=== PATIENT | male | born 1955 | race African-American/Black ===

== ENCOUNTER 2019-03-24 14:32 | Emergency (ER) | payer MEDICARE, OTHER ==
[~2019-03-24] VITALS: Ht 185.4 cm; Wt 112.0 kg
[2019-03-24] MEDS ORDERED: CLINDAMYCIN 600 MG in DEXTROSE 5% WATER 50 ML IV ONE (16:15)
[2019-03-24] MEDS ORDERED: ACETAMINOPHEN 325MG TABLET PO STA (16:15)
[2019-03-24] MEDS ORDERED: LIDOCAINE 1%/EPI 1:100,000 10 ML VIAL IJ ONE (16:15)
[2019-03-24] MEDS ORDERED: CLONIDINE 0.2MG TABLET PO ONE (16:30)
[2019-03-24] MEDS ORDERED: LIDOCAINE HCL/EPINEPHRINE 1%-EPI 1:100,000 20 ML VIAL INFIL SCH (16:30)
[2019-03-24] MEDS ORDERED: CLINDAMYCIN 600MG PREMIX 50 ML IV NR (16:45)
[2019-03-24 16:52] LABS: EOSINOPHILS % 3.8 % (0.0-5.0); HEMATOCRIT. 41.9 % (42.0-52.0); HEMOGLOBIN. 13.7 g/dL (14.0-18.0); LYMPHOCYTES % 10.6 % (20.0-50.0); MEAN CORPUSCULAR HEMOGLOBIN 26.8 pg (28.0-32.0); MEAN CORPUSCULAR VOLUME 81.9 fL (80.0-94.0); MONOCYTES % 10.5 % (2.0-8.0); NEUTROPHILS % 74.1 % (40.0-76.0); RED BLOOD CELL COUNT 5.12 mill/uL (4.7-6.1); RED CELL DISTRIBUTION WIDTH 16.9 % (11.6-14.6)
[2019-03-24 16:54] LABS: CHLORIDE 100 mEq/L (98-107)
[2019-03-24 17:09] LABS: MEAN PLATELET VOLUME 9.1 fl (7.4-10.4); PLATELET 116 x1000/uL (130-400)
[2019-03-24] MEDS ORDERED: CLINDAMYCIN HCL 150MG CAPSULE PO STA (18:24)
[2019-03-24 19:06] VITALS: BP 160/86
== END 2019-03-24 19:08 | disposition home or self-care (01) ==
LOC: ER 14:32
DX: L03.115 Cellulitis of right lower limb (principal); L02.415 Cutaneous abscess of right lower limb; I12.0 Hypertensive chronic kidney disease with stage 5 chronic kidney disease or end stage renal disease; E11.22 Type 2 diabetes mellitus with diabetic chronic kidney disease; N18.6 End stage renal disease; Z89.9 Acquired absence of limb, unspecified; Z99.2 Dependence on renal dialysis
CPT/HCPCS: 10060; 36415; 71045; 80053; 85025; 87040; 93005; 93971; 99283; J3490; J7060

== ENCOUNTER 2019-03-26 13:57 | Emergency (ER) | payer MEDICARE, OTHER ==
[~2019-03-26] VITALS: Ht 185.4 cm; Wt 117.0 kg
[2019-03-26] MEDS ORDERED: ATOR20TA65 MT (14:11)
[2019-03-26] MEDS ORDERED: MULT-1116 MT (14:11)
[2019-03-26] MEDS ORDERED: CLOP75TA33 PO (14:11)
[2019-03-26] MEDS ORDERED: LIDOCAINE HCL/PF 1% 10 MG/ML 5ML VIAL IJ ONE (15:30)
[2019-03-26 16:16] VITALS: BP 158/62
== END 2019-03-26 16:14 | disposition home or self-care (01) ==
LOC: ER 13:57
DX: Z48.00 Encounter for change or removal of nonsurgical wound dressing (principal); L03.115 Cellulitis of right lower limb; E11.8 Type 2 diabetes mellitus with unspecified complications; E11.22 Type 2 diabetes mellitus with diabetic chronic kidney disease; N18.6 End stage renal disease; Z99.2 Dependence on renal dialysis; Z89.612 Acquired absence of left leg above knee
CPT/HCPCS: 99283; J3490

== ENCOUNTER 2019-04-01 12:03 | Emergency (ER) | payer MEDICARE, OTHER ==
[~2019-04-01] VITALS: Ht 185.4 cm; Wt 111.0 kg
[~2019-04-01 12:03] MED LIST: ATOR20TA65 MT; CLOP75TA33 PO; MULT-1116 MT
[2019-04-01 15:23] VITALS: BP 158/76
== END 2019-04-01 15:22 | disposition home or self-care (01) ==
LOC: ER 12:03
DX: S80.921D Unspecified superficial injury of right lower leg, subsequent encounter (principal); N28.9 Disorder of kidney and ureter, unspecified; E11.9 Type 2 diabetes mellitus without complications; Z98.890 Other specified postprocedural states; Z89.619 Acquired absence of unspecified leg above knee; Z79.899 Other long term (current) drug therapy; X58.XXXD Exposure to other specified factors, subsequent encounter
CPT/HCPCS: 99281; A4565

== ENCOUNTER 2019-04-04 09:23 | Emergency (ER) | payer MEDICARE, OTHER ==
[~2019-04-04] VITALS: Ht 185.4 cm; Wt 112.0 kg
[2019-04-04 09:38] VITALS: BP 135/85
== END 2019-04-04 11:23 | disposition home or self-care (01) ==
LOC: ER 09:23
DX: Z48.00 Encounter for change or removal of nonsurgical wound dressing (principal); E11.9 Type 2 diabetes mellitus without complications; Z89.512 Acquired absence of left leg below knee
CPT/HCPCS: 99282

== ENCOUNTER 2019-04-21 21:55 | Emergency (ER) | payer MEDICARE, MEDICAID, OTHER ==
[~2019-04-21] VITALS: Ht 185.4 cm; Wt 120.0 kg
[2019-04-22] MEDS ORDERED: HYDROCODONE/ACETAMINOPHEN 5/325MG TABLET PO ONE
[2019-04-22] MEDS ORDERED: KETOROLAC 30MG/ML VIAL IM ONE
[2019-04-22 02:10] VITALS: BP 144/80
== END 2019-04-22 03:13 | disposition home or self-care (01) ==
LOC: ER 21:55
DX: M25.551 Pain in right hip (principal); E11.9 Type 2 diabetes mellitus without complications; Z98.890 Other specified postprocedural states; Z79.899 Other long term (current) drug therapy
CPT/HCPCS: 73502; 96372; 99283; J1885

== ENCOUNTER 2019-04-25 13:14 | Emergency (ER) | payer MEDICARE, OTHER ==
[~2019-04-25] VITALS: Ht 185.4 cm; Wt 111.0 kg
[2019-04-25 13:50] VITALS: BP 171/73
[2019-04-25] MEDS ORDERED: LIDOCAINE HCL/PF 1% 10 MG/ML 5ML VIAL IJ ONE (16:00)
[2019-04-25] MEDS ORDERED: BACITRACIN ZINC OINT UDPKT TOP ONE (16:00)
[2019-04-25] MEDS ORDERED: ACETAMINOPHEN 325MG TABLET PO ONE (16:00)
== END 2019-04-25 17:08 | disposition home or self-care (01) ==
LOC: ER 13:26
DX: L02.415 Cutaneous abscess of right lower limb (principal); E11.22 Type 2 diabetes mellitus with diabetic chronic kidney disease; I12.0 Hypertensive chronic kidney disease with stage 5 chronic kidney disease or end stage renal disease; N18.6 End stage renal disease; Z99.2 Dependence on renal dialysis; Z89.512 Acquired absence of left leg below knee
CPT/HCPCS: 10060; 99283; J3490

== ENCOUNTER 2019-04-29 11:03 | Emergency (ER) | payer MEDICARE, OTHER ==
[~2019-04-29] VITALS: Ht 185.4 cm; Wt 87.0 kg
[2019-04-29 11:59] VITALS: BP 135/89
[2019-04-29] MEDS ORDERED: BACITRACIN ZINC OINT UDPKT TOP ONE (13:15)
== END 2019-04-29 13:31 | disposition home or self-care (01) ==
LOC: ER 11:16
DX: M79.604 Pain in right leg (principal); E11.9 Type 2 diabetes mellitus without complications; Z98.890 Other specified postprocedural states; Z79.899 Other long term (current) drug therapy
CPT/HCPCS: 99282

== ENCOUNTER 2020-01-05 14:31 | Emergency (ER) | payer MEDICARE, MEDICAID, OTHER ==
[~2020-01-05] VITALS: Ht 188 cm; Wt 110.0 kg
[2020-01-05 16:57] LABS: EOSINOPHILS % 13.9 % (0.0-5.0); HEMATOCRIT. 32.8 % (42.0-52.0); LYMPHOCYTES % 14.9 % (20.0-50.0); MEAN CORPUSCULAR HEMOGLOBIN 28.1 pg (28.0-32.0); MEAN CORPUSCULAR VOLUME 83.8 fL (80.0-94.0); MEAN PLATELET VOLUME 9.2 fl (7.4-10.4); MONOCYTES % 11.2 % (2.0-8.0); PLATELET 99 x1000/uL (130-400); RED BLOOD CELL COUNT 3.91 mill/uL (4.7-6.1)
[2020-01-05 17:05] LABS: INR 1.1; PROTHROMBIN TIME 11.9 sec (9.6-11.0)
[2020-01-05 17:06] LABS: CHLORIDE 92 mEq/L (98-107)
[2020-01-05 17:55] VITALS: BP 183/88
== END 2020-01-05 17:57 | disposition home or self-care (01) ==
LOC: ER 14:37
DX: T82.41XA Breakdown (mechanical) of vascular dialysis catheter, initial encounter (principal); Y84.1 Kidney dialysis as the cause of abnormal reaction of the patient, or of later complication, without mention of misadventure at the time of the procedure; Y92.9 Unspecified place or not applicable; I12.0 Hypertensive chronic kidney disease with stage 5 chronic kidney disease or end stage renal disease; E11.22 Type 2 diabetes mellitus with diabetic chronic kidney disease; N18.6 End stage renal disease; Z99.2 Dependence on renal dialysis; Z89.9 Acquired absence of limb, unspecified
CPT/HCPCS: 36415; 80053; 85025; 99283

== ENCOUNTER 2020-04-07 14:51 | Emergency (ER) | payer MEDICARE, MEDICAID, OTHER ==
[~2020-04-07] VITALS: Ht 188 cm; Wt 113.0 kg
[2020-04-07 16:40] VITALS: BP 168/62
== END 2020-04-07 17:45 | disposition home or self-care (01) ==
LOC: ER 15:52
DX: R60.0 Localized edema (principal); I12.0 Hypertensive chronic kidney disease with stage 5 chronic kidney disease or end stage renal disease; E11.22 Type 2 diabetes mellitus with diabetic chronic kidney disease; N18.6 End stage renal disease; Z99.2 Dependence on renal dialysis; Z79.899 Other long term (current) drug therapy
CPT/HCPCS: 93971; 99284

== ENCOUNTER 2020-04-11 10:21 | Emergency (ER) | payer MEDICARE, OTHER ==
[~2020-04-11] VITALS: Ht 182.9 cm; Wt 113.0 kg
[2020-04-11 10:27] VITALS: BP 184/77
[2020-04-11 12:05] LABS: BASOPHILS % 1.1 % (0.0-2.0); EOSINOPHILS % 3.7 % (0.0-5.0); HEMATOCRIT. 26.9 % (42.0-52.0); LYMPHOCYTES % 11.3 % (20.0-50.0); MEAN CORPUSCULAR HEMOGLOBIN 28.8 pg (28.0-32.0); MEAN CORPUSCULAR VOLUME 85.9 fL (80.0-94.0); MEAN PLATELET VOLUME 9.6 fl (7.4-10.4); MONOCYTES % 14.6 % (2.0-8.0); NEUTROPHILS % 69.3 % (40.0-76.0); PLATELET 70 x1000/uL (130-400); RED BLOOD CELL COUNT 3.13 mill/uL (4.7-6.1); RED CELL DISTRIBUTION WIDTH 14.6 % (11.6-14.6)
[2020-04-11 12:11] LABS: CHLORIDE 100 mEq/L (98-107)
== END 2020-04-11 16:17 | disposition home or self-care (01) ==
LOC: ER 10:40
DX: R60.9 Edema, unspecified (principal); I12.0 Hypertensive chronic kidney disease with stage 5 chronic kidney disease or end stage renal disease; E11.22 Type 2 diabetes mellitus with diabetic chronic kidney disease; N18.6 End stage renal disease; Z99.2 Dependence on renal dialysis; Z89.612 Acquired absence of left leg above knee
CPT/HCPCS: 36415; 71045; 80053; 85025; 93970; 99285

== ENCOUNTER 2020-05-11 08:23 | Inpatient (IN) | payer MEDICARE, OTHER ==
[~2020-05-11] VITALS: Ht 185.4 cm; Wt 110.7 kg
[~2020-05-11 08:23] MED LIST changes: +ALBU90AE INH; +ASCO-339 MT; +ASPI-1497 MT; +CALC667C PO; +DEXA2TAB PO; +FAMO-135 PO; +LOSA100T32 PO; +PIOG15TA66 PO; +ZINC220T4 MT
[2020-05-11 09:35] LABS: HEMATOCRIT. 25.3 % (42.0-52.0); HEMOGLOBIN. 8.4 g/dL (14.0-18.0); MEAN CORPUSCULAR HEMOGLOBIN 28.5 pg (28.0-32.0); MEAN CORPUSCULAR VOLUME 86.1 fL (80.0-94.0); MEAN PLATELET VOLUME 10.8 fl (7.4-10.4); PLATELET 74 x1000/uL (130-400); RED BLOOD CELL COUNT 2.94 mill/uL (4.7-6.1); RED CELL DISTRIBUTION WIDTH 17.4 % (11.6-14.6)
[2020-05-11 09:37] LABS: CHLORIDE 95 mEq/L (98-107)
[2020-05-11 09:41] LABS: ETHANOL BLOOD < 10 mg/dL
[2020-05-11 10:38] LABS: PLATELET ESTIMATE DECREASED
[2020-05-11] MEDS ORDERED: IPRATROPIUM BROMIDE (0.02%) 0.5MG/2.5ML NEB HHN STA (10:52)
[2020-05-11] MEDS ORDERED: ALBUTEROL (0.083%) 2.5MG/3ML NEB HHN STA (10:52)
[2020-05-11] MEDS ORDERED: LEVOFLOXACIN 500MG PREMIX 100 ML IV ONE (11:00)
[2020-05-11] MEDS ORDERED: IPRATROPIUM/ALBUTEROL 0.5-3(2.5)MG/3ML NEB HHN PRN (13:45)
[2020-05-11] MEDS ORDERED: CLONIDINE 0.1MG TABLET PO PRN (13:45)
[2020-05-11] MEDS ORDERED: ACETAMINOPHEN 325MG TABLET PO PRN (13:45)
[2020-05-11] MEDS ORDERED: DIPHENHYDRAMINE 50MG/ML VIAL IV PRN (13:45)
[2020-05-11] MEDS ORDERED: ONDANSETRON HCL 4MG/2ML INJ IV PRN (13:45)
[2020-05-11 15:40] VITALS: BP 137/66
[2020-05-11] MEDS ORDERED: LOSA25TA26 MT (16:56)
[2020-05-11] MEDS ORDERED: ATOR10TA69 MT (16:56)
[2020-05-11] MEDS ORDERED: CALC-1068 MT (16:56)
[2020-05-11] MEDS ORDERED: CLOP75TA33 MT (16:56)
[2020-05-11] MEDS ORDERED: ENOXAPARIN 120MG/0.8ML SYR SUBCUT SCH (19:00)
[2020-05-11 20:00] VITALS: BP 147/69
[2020-05-11] MEDS: METOPROLOL TARTRATE 25MG TABLET PO SCH (21:10)
[2020-05-11] MEDS ORDERED: PROMETHAZINE/DEXTROMETHORPHAN 6.25-15MG/5ML BOTTLE 120ML PO PRN (23:00)
[2020-05-12] VITALS: BP 109/59
[2020-05-12 04:00] VITALS: BP 136/65
[2020-05-12 05:58] LABS: INR 1.2
[2020-05-12 06:02] LABS: CHLORIDE 96 mEq/L (98-107)
[2020-05-12 06:04] LABS: HEMATOCRIT. 22.6 % (42.0-52.0); HEMOGLOBIN. 7.6 g/dL (14.0-18.0); MEAN CORPUSCULAR HEMOGLOBIN 28.7 pg (28.0-32.0); MEAN CORPUSCULAR VOLUME 85.5 fL (80.0-94.0); MEAN PLATELET VOLUME 10.2 fl (7.4-10.4); PLATELET 77 x1000/uL (130-400); RED BLOOD CELL COUNT 2.64 mill/uL (4.7-6.1); RED CELL DISTRIBUTION WIDTH 17.2 % (11.6-14.6)
[2020-05-12 06:25] LABS: LDL CHOLESTEROL 43 mg/dL (5-100)
[2020-05-12 06:26] LABS: HDL CHOLESTEROL 34 mg/dL (40-59)
[2020-05-12] MEDS ORDERED: DEXTROSE 50% WATER 50ML SYRINGE IV PRN (07:00)
[2020-05-12] MEDS: BLOOD SUGAR DIAGNOSTIC STRIP TEST SCH ×3 (07:20→17:20)
[2020-05-12] MEDS: INSULIN LISPRO 100 UNITS/ML SUBCUT SCH ×3 (07:50→17:50)
[2020-05-12 08:00] VITALS: BP 165/79
[2020-05-12] MEDS: METOPROLOL TARTRATE 25MG TABLET PO SCH ×2 (08:14→08:15)
[2020-05-12 12:00] VITALS: BP 168/80
[2020-05-12] MEDS ORDERED: GUAIFENESIN-DM 200MG-20MG/10ML UDC PO PRN (12:15)
[2020-05-12] MEDS ORDERED: LEVO250T58 MT (13:06)
[2020-05-12] MEDS ORDERED: LEVO50TA MT (13:06)
[2020-05-12] MEDS ORDERED: LOSARTAN POTASSIUM 50 MG TABLET PO NR (13:15)
[2020-05-12 14:38] VITALS: BP_SYST 158; BP_SYST 168; BP_DIAS 80; BP_DIAS 86
[2020-05-12 16:00] VITALS: BP 158/86
[2020-05-12] MEDS ORDERED: EPOETIN ALFA-EPBX 10,000 UNIT/ML VIAL SUBCUT SCH (21:00)
[2020-05-13] MEDS ORDERED: LEVOTHYROXINE SODIUM 50MCG TABLET PO SCH (07:20)
[2020-05-13 09:11] LABS: PLATELET ESTIMATE DECREASED
[2020-05-13] MEDS ORDERED: LEVOFLOXACIN 500MG PREMIX 100 ML IV SCH ×2 (11:00)
== END 2020-05-12 19:05 | disposition home or self-care (01) | DRG 193 ==
LOC: ER 08:23 → 6WST 13:08 → EDBEDREQ 13:11 → ENRESERV 14:38
PROVIDERS: ADMIT Internal Medicine; ATTEND Internal Medicine
PROC: 5A1D70Z Performance of Urinary Filtration, Intermittent, Less than 6 Hours Per Day (ICD-10-PCS; principal; 2020-05-12)
DX: J18.9 Pneumonia, unspecified organism (principal); J96.00 Acute respiratory failure, unspecified whether with hypoxia or hypercapnia; N18.6 End stage renal disease; I48.92 Unspecified atrial flutter; I13.11 Hypertensive heart and chronic kidney disease without heart failure, with stage 5 chronic kidney disease, or end stage renal disease; J44.0 Chronic obstructive pulmonary disease with (acute) lower respiratory infection; J98.11 Atelectasis; J20.9 Acute bronchitis, unspecified; D63.1 Anemia in chronic kidney disease; E11.51 Type 2 diabetes mellitus with diabetic peripheral angiopathy without gangrene; D72.819 Decreased white blood cell count, unspecified; J98.4 Other disorders of lung; E11.22 Type 2 diabetes mellitus with diabetic chronic kidney disease; E78.5 Hyperlipidemia, unspecified; Z86.16 Personal history of COVID-19; Z89.512 Acquired absence of left leg below knee; Z99.2 Dependence on renal dialysis; Z98.84 Bariatric surgery status; Z87.01 Personal history of pneumonia (recurrent); Z89.421 Acquired absence of other right toe(s); Z79.899 Other long term (current) drug therapy
CPT/HCPCS: 36415; 71045; 80053; 80061; 80320; 82962; 83036; 83605; 83880; 84145; 84443; 84484; 85025; 93005; 93306; 93970; 94640; 99285; J0885; J1650; J1956; G0480

== ENCOUNTER 2020-05-26 13:16 | Emergency (ER) | payer MEDICARE, OTHER ==
[~2020-05-26] VITALS: Ht 185.4 cm; Wt 111.0 kg
[~2020-05-26 13:16] MED LIST changes: -ASPI-1497 MT; +ATOR10TA69 MT; +CALC-1068 MT; -CLOP75TA33 PO; +LEVO250T58 MT; +LEVO50TA MT
[2020-05-26 13:32] VITALS: BP 131/65
[2020-05-26] MEDS ORDERED: CETI10TA6 PO (14:10)
[2020-05-26] MEDS ORDERED: DOXY100C42 PO (14:10)
[2020-05-26] MEDS ORDERED: FLUT9.9S BOTHNSTRLS (14:10)
== END 2020-05-26 14:36 | disposition home or self-care (01) ==
LOC: ER 14:08
DX: L01.00 Impetigo, unspecified (principal); J32.9 Chronic sinusitis, unspecified; I12.0 Hypertensive chronic kidney disease with stage 5 chronic kidney disease or end stage renal disease; E11.22 Type 2 diabetes mellitus with diabetic chronic kidney disease; N18.6 End stage renal disease; Z99.2 Dependence on renal dialysis; Z89.421 Acquired absence of other right toe(s); Z89.512 Acquired absence of left leg below knee; Z98.890 Other specified postprocedural states
CPT/HCPCS: 99283

== ENCOUNTER 2020-06-21 16:44 | Emergency (ER) | payer BC, OTHER ==
[~2020-06-21] VITALS: Ht 175.3 cm; Wt 80.0 kg
[~2020-06-21 16:44] MED LIST changes: +CETI10TA6 PO; +DOXY100C42 PO; +FLUT9.9S BOTHNSTRLS
[2020-06-21] MEDS ORDERED: SODIUM CHLORIDE 0.9% 1,000 ML IV ONE (18:00)
[2020-06-21 18:03] LABS: CHLORIDE 99 mEq/L (98-107)
[2020-06-21 18:06] LABS: BASOPHILS % 0.9 % (0.0-2.0); EOSINOPHILS % 1.9 % (0.0-5.0); HEMATOCRIT. 30.6 % (42.0-52.0); LYMPHOCYTES % 11.3 % (20.0-50.0); MEAN CORPUSCULAR HEMOGLOBIN 28.9 pg (28.0-32.0); MEAN CORPUSCULAR VOLUME 88.6 fL (80.0-94.0); MEAN PLATELET VOLUME 10.8 fl (7.4-10.4); MONOCYTES % 11.8 % (2.0-8.0); NEUTROPHILS % 74.1 % (40.0-76.0); PLATELET 107 x1000/uL (130-400); RED BLOOD CELL COUNT 3.46 mill/uL (4.7-6.1); RED CELL DISTRIBUTION WIDTH 17.1 % (11.6-14.6)
[2020-06-21] MEDS ORDERED: IOHEXOL-300 100 ML BOTTLE ONE (20:18)
[2020-06-22] VITALS: BP 146/75
== END 2020-06-22 00:40 | disposition short-term general hospital (02) ==
LOC: ER 16:44
DX: R19.7 Diarrhea, unspecified (principal); R42 Dizziness and giddiness; E86.1 Hypovolemia; E11.22 Type 2 diabetes mellitus with diabetic chronic kidney disease; I12.9 Hypertensive chronic kidney disease with stage 1 through stage 4 chronic kidney disease, or unspecified chronic kidney disease; N18.9 Chronic kidney disease, unspecified; Z20.822 Contact with and (suspected) exposure to COVID-19; Z79.899 Other long term (current) drug therapy; Z89.9 Acquired absence of limb, unspecified
CPT/HCPCS: 36415; 70450; 71045; 71260; 80053; 82010; 82962; 83880; 84484; 85025; 87426; 93005; 96360; 99285; J7030; Q9967

== ENCOUNTER 2020-11-08 17:15 | Inpatient (IN) | payer MEDICARE, MEDICAID ==
[~2020-11-08] VITALS: Ht 185.4 cm; Wt 111.1 kg
[2020-11-08] MEDS ORDERED: ACETAMINOPHEN WITH CODEINE 300/30MG TABLET PO ONE (18:15)
[2020-11-08] MEDS ORDERED: ONDANSETRON HCL 4MG/2ML INJ IV STA (19:01)
[2020-11-08] MEDS ORDERED: MORPHINE SULFATE 4 MG/ML CPJ (NOT FOR IM USE) IV STA (19:01)
[2020-11-08] MEDS ORDERED: SODIUM CHLORIDE 0.9% 1,000 ML IV ONE (19:15)
[2020-11-08 19:56] LABS: BASOPHILS % 0.9 % (0.0-2.0); EOSINOPHILS % 3.1 % (0.0-5.0); HEMATOCRIT. 33.2 % (42.0-52.0); HEMOGLOBIN. 10.8 g/dL (14.0-18.0); LYMPHOCYTES % 13.2 % (20.0-50.0); MEAN CORPUSCULAR HEMOGLOBIN 26.8 pg (28.0-32.0); MEAN CORPUSCULAR VOLUME 82.1 fL (80.0-94.0); MEAN PLATELET VOLUME 9.7 fl (7.4-10.4); MONOCYTES % 10.4 % (2.0-8.0); NEUTROPHILS % 72.4 % (40.0-76.0); PLATELET 65 x1000/uL (130-400); RED BLOOD CELL COUNT 4.05 mill/uL (4.7-6.1); RED CELL DISTRIBUTION WIDTH 16.9 % (11.6-14.6)
[2020-11-08 20:04] LABS: CHLORIDE 100 mEq/L (98-107)
[2020-11-08 20:07] LABS: INR 1.3; PROTHROMBIN TIME 13.9 sec (9.6-11.0)
[2020-11-09] MEDS ORDERED: DIPHENHYDRAMINE 50MG/ML VIAL IV PRN (02:30)
[2020-11-09] MEDS ORDERED: ONDANSETRON HCL 4MG/2ML INJ IV PRN (02:30)
[2020-11-09] MEDS ORDERED: ACETAMINOPHEN 325MG TABLET PO PRN ×2 (02:30)
[2020-11-09] MEDS ORDERED: NALOXONE HCL 0.4MG/ML VIAL IV PRN (02:45)
[2020-11-09 03:27] VITALS: BP 156/83
[2020-11-09] MEDS: DEXT 5%/0.45% NACL 1000ML 1,000 ML IV SCH (03:55)
[2020-11-09 04:00] VITALS: BP 156/83
[2020-11-09] MEDS: MORPHINE SULFATE 4 MG/ML CPJ (NOT FOR IM USE) IV PRN ×3 (04:08→23:16)
[2020-11-09] MEDS: OMEPRAZOLE 20MG CAPSULE EXTENDED RELEASE PO SCH ×2 (06:24→21:04)
[2020-11-09 08:00] VITALS: BP 148/79
[2020-11-09 12:00] VITALS: BP 161/98
[2020-11-09 16:00] VITALS: BP 173/95
[2020-11-09 20:00] VITALS: BP 180/85
[2020-11-09] MEDS: CLONIDINE 0.1MG TABLET PO PRN (21:04)
[2020-11-10] VITALS: BP 134/75
[2020-11-10 04:00] VITALS: BP 150/84
[2020-11-10] MEDS: OMEPRAZOLE 20MG CAPSULE EXTENDED RELEASE PO SCH ×2 (05:25→21:37)
[2020-11-10 08:00] VITALS: BP 155/83
[2020-11-10] MEDS ORDERED: VANCOMYCIN HCL 1 GM/VIAL ONE (11:08)
[2020-11-10] MEDS ORDERED: BACITRACIN 15GM TUBE TOP ONE (11:08)
[2020-11-10 11:24] LABS: BASOPHILS % 1.3 % (0.0-2.0); EOSINOPHILS % 13.1 % (0.0-5.0); HEMATOCRIT. 36.7 % (42.0-52.0); LYMPHOCYTES % 18.8 % (20.0-50.0); MEAN CORPUSCULAR HEMOGLOBIN 26.8 pg (28.0-32.0); MEAN CORPUSCULAR VOLUME 82.2 fL (80.0-94.0); MEAN PLATELET VOLUME 10.3 fl (7.4-10.4); NEUTROPHILS % 56.8 % (40.0-76.0); PLATELET 68 x1000/uL (130-400); RED BLOOD CELL COUNT 4.47 mill/uL (4.7-6.1)
[2020-11-10 12:00] VITALS: BP 156/78
[2020-11-10] MEDS ORDERED: FENTANYL CITRATE/PF 50MCG/ML 2ML VIAL ONE (13:50)
[2020-11-10] MEDS ORDERED: SUCCINYLCHOLINE CHLORIDE 200MG/10ML IV ONE (13:51)
[2020-11-10] MEDS ORDERED: PROPOFOL 200MG/20ML VIAL IV ONE (13:51)
[2020-11-10] MEDS ORDERED: GLYCOPYRROLATE 0.2 MG/ML 2ML VIAL ONE (13:51)
[2020-11-10] MEDS ORDERED: ONDANSETRON HCL 4MG/2ML INJ ONE (13:51)
[2020-11-10] MEDS ORDERED: CEFAZOLIN SODIUM 1000MG/VIAL ONE (13:51)
[2020-11-10] MEDS ORDERED: MIDAZOLAM HCL 2 MG/2 ML VIAL ONE (13:51)
[2020-11-10] MEDS ORDERED: METOCLOPRAMIDE HCL 10MG/2ML VIAL ONE (13:51)
[2020-11-10] MEDS ORDERED: LIDOCAINE HCL/EPINEPHRINE 1%-EPI 1:100,000 20 ML VIAL ONE (14:16)
[2020-11-10] MEDS ORDERED: BUPIVACAINE HCL 0.5% (5MG/ML) 50ML ONE (14:18)
[2020-11-10] MEDS ORDERED: MORPHINE SULFATE 2 MG/ML CPJ (NOT FOR IM USE) IV PRN (15:00)
[2020-11-10] MEDS ORDERED: ONDANSETRON HCL 4MG/2ML INJ IV PRN (15:00)
[2020-11-10] MEDS ORDERED: HYDROMORPHONE HCL/PF 2MG/ML CPJ IV PRN (15:00)
[2020-11-10] MEDS ORDERED: MEPERIDINE HCL/PF 25MG/ML CPJ IV PRN ×2 (15:00)
[2020-11-10] MEDS ORDERED: SODIUM CHLORIDE 0.9% 1,000 ML IV ONE (15:00)
[2020-11-10 16:30] VITALS: BP 155/81
[2020-11-10] MEDS: MORPHINE SULFATE 4 MG/ML CPJ (NOT FOR IM USE) IV PRN (18:48)
[2020-11-10 20:00] VITALS: BP 153/71
[2020-11-10] MEDS: HYDROCODONE/ACETAMINOPHEN 10/325MG TABLET PO PRN (21:36)
[2020-11-10] MEDS: CEFAZOLIN 1000MG PREMIX 50 ML IV SCH (21:36)
[2020-11-10] MEDS ORDERED: CEFAZOLIN SODIUM 1000MG/VIAL IV SCH (22:00)
[2020-11-11] VITALS: BP 155/80
[2020-11-11] MEDS: MORPHINE SULFATE 4 MG/ML CPJ (NOT FOR IM USE) IV PRN ×2 (03:26→22:00)
[2020-11-11] MEDS: DEXT 5%/0.45% NACL 1000ML 1,000 ML IV SCH ×2 (03:27→06:37)
[2020-11-11 04:00] VITALS: BP 133/66
[2020-11-11] MEDS: OMEPRAZOLE 20MG CAPSULE EXTENDED RELEASE PO SCH ×2 (06:36→21:46)
[2020-11-11] MEDS: CEFAZOLIN 1000MG PREMIX 50 ML IV SCH ×3 (06:36→21:46)
[2020-11-11 08:00] VITALS: BP 141/71
[2020-11-11 12:00] VITALS: BP 134/70
[2020-11-11 16:00] VITALS: BP 135/67
[2020-11-11 20:00] VITALS: BP 164/68
[2020-11-11] MEDS: CLONIDINE 0.1MG TABLET PO PRN (22:03)
[2020-11-12] VITALS: BP 156/76
[2020-11-12 04:00] VITALS: BP 153/72
[2020-11-12] MEDS: CEFAZOLIN 1000MG PREMIX 50 ML IV SCH (06:26)
[2020-11-12] MEDS: DEXT 5%/0.45% NACL 1000ML 1,000 ML IV SCH (06:31)
[2020-11-12] MEDS: OMEPRAZOLE 20MG CAPSULE EXTENDED RELEASE PO SCH ×3 (06:31→20:09)
[2020-11-12] MEDS: MORPHINE SULFATE 4 MG/ML CPJ (NOT FOR IM USE) IV PRN (06:40)
[2020-11-12 08:00] VITALS: BP 153/75
[2020-11-12 12:00] VITALS: BP 153/75
[2020-11-12 16:00] VITALS: BP 149/69
[2020-11-12 16:26] LABS: HEPATITIS B SURFACE ANTIGEN NEGATIVE
[2020-11-12 20:00] VITALS: BP 165/70
[2020-11-12] MEDS: CLONIDINE 0.1MG TABLET PO PRN (20:10)
[2020-11-13] VITALS: BP 149/77
[2020-11-13] MEDS: DEXT 5%/0.45% NACL 1000ML 1,000 ML IV SCH (03:33)
[2020-11-13 04:00] VITALS: BP 153/69
[2020-11-13] MEDS: OMEPRAZOLE 20MG CAPSULE EXTENDED RELEASE PO SCH ×2 (06:28→21:29)
[2020-11-13] MEDS: MORPHINE SULFATE 4 MG/ML CPJ (NOT FOR IM USE) IV PRN ×2 (06:28→12:47)
[2020-11-13 08:00] VITALS: BP 144/72
[2020-11-13] MEDS: HYDROCODONE/ACETAMINOPHEN 10/325MG TABLET PO PRN ×2 (10:44→17:46)
[2020-11-13 12:00] VITALS: BP 149/56
[2020-11-13 16:00] VITALS: BP 125/48
[2020-11-13 20:00] VITALS: BP 116/66
[2020-11-14] VITALS: BP 115/57
[2020-11-14 04:00] VITALS: BP 131/66
[2020-11-14] MEDS: OMEPRAZOLE 20MG CAPSULE EXTENDED RELEASE PO SCH ×2 (06:28→21:22)
[2020-11-14] MEDS: DEXT 5%/0.45% NACL 1000ML 1,000 ML IV SCH (06:28)
[2020-11-14 08:00] VITALS: BP 155/69
[2020-11-14] MEDS ORDERED: MORPHINE SULFATE 4 MG/ML CPJ (NOT FOR IM USE) IV PRN (09:00)
[2020-11-14] MEDS ORDERED: HYDROCODONE/ACETAMINOPHEN 10/325MG TABLET PO PRN (09:00)
[2020-11-14 12:00] VITALS: BP 130/70
[2020-11-14 16:00] VITALS: BP 114/57
[2020-11-14 20:00] VITALS: BP 143/71
[2020-11-15] VITALS: BP 143/64
[2020-11-15 04:00] VITALS: BP 124/50
[2020-11-15] MEDS: DEXT 5%/0.45% NACL 1000ML 1,000 ML IV SCH (04:20)
[2020-11-15] MEDS: OMEPRAZOLE 20MG CAPSULE EXTENDED RELEASE PO SCH (07:11)
[2020-11-15 08:00] VITALS: BP 121/62
[2020-11-15 12:00] VITALS: BP 121/62
[2020-11-15 13:15] VITALS: BP 121/62
== END 2020-11-15 16:11 | DRG 480 ==
LOC: ER 17:15 → MICUSO 11-09 01:55 → 6EST 11-09 02:02
PROVIDERS: ADMIT Internal Medicine; ATTEND Internal Medicine
PROC: 0QS734Z Reposition Left Upper Femur with Internal Fixation Device, Percutaneous Approach (ICD-10-PCS; principal; 2020-11-10)
PROC: 5A1D70Z Performance of Urinary Filtration, Intermittent, Less than 6 Hours Per Day (ICD-10-PCS; 2020-11-12)
PROC: 5A1D70Z Performance of Urinary Filtration, Intermittent, Less than 6 Hours Per Day (ICD-10-PCS; 2020-11-12)
DX: S72.002A Fracture of unspecified part of neck of left femur, initial encounter for closed fracture (principal); N18.6 End stage renal disease; I48.92 Unspecified atrial flutter; I12.0 Hypertensive chronic kidney disease with stage 5 chronic kidney disease or end stage renal disease; D64.9 Anemia, unspecified; D69.6 Thrombocytopenia, unspecified; E11.22 Type 2 diabetes mellitus with diabetic chronic kidney disease; W18.39XA Other fall on same level, initial encounter; Z20.822 Contact with and (suspected) exposure to COVID-19; E66.9 Obesity, unspecified; E11.51 Type 2 diabetes mellitus with diabetic peripheral angiopathy without gangrene; Z86.16 Personal history of COVID-19; Z98.84 Bariatric surgery status; Z79.2 Long term (current) use of antibiotics; Z79.899 Other long term (current) drug therapy; Z89.612 Acquired absence of left leg above knee; Z87.01 Personal history of pneumonia (recurrent); Z89.512 Acquired absence of left leg below knee; Z68.32 Body mass index [BMI] 32.0-32.9, adult; Z99.2 Dependence on renal dialysis; Y93.89 Activity, other specified; Y92.89 Other specified places as the place of occurrence of the external cause; Y99.8 Other external cause status
CPT/HCPCS: 36415; 71045; 73502; 76000; 80048; 80053; 85025; 86705; 86709; 86803; 87340; 87426; 93005; 97110; 97162; 97530; 99285; J0330; J0690; J1200; J2175; J2250; J2270; J2405; J2704; J2765; J3010; J3370; J3490; J7030

== ENCOUNTER 2021-02-18 10:35 | Emergency (ER) | payer MEDICAID, MEDICARE ==
[~2021-02-18] VITALS: Ht 177.8 cm; Wt 113.0 kg
[~2021-02-18 10:35] MED LIST changes: +DOXY-326 PO; -DOXY100C42 PO
[2021-02-18 11:49] VITALS: BP 190/80
[2021-02-18] MEDS ORDERED: ACET650T37 MT (15:17)
== END 2021-02-18 15:50 | disposition home or self-care (01) ==
LOC: ER 10:35
DX: M25.521 Pain in right elbow (principal); I12.0 Hypertensive chronic kidney disease with stage 5 chronic kidney disease or end stage renal disease; E11.22 Type 2 diabetes mellitus with diabetic chronic kidney disease; N18.6 End stage renal disease; Z89.429 Acquired absence of other toe(s), unspecified side; Z99.2 Dependence on renal dialysis
CPT/HCPCS: 99282

== ENCOUNTER 2021-02-23 07:05 | Inpatient (IN) | payer MEDICARE, OTHER ==
[~2021-02-23] VITALS: Ht 185.4 cm; Wt 113.4 kg
[~2021-02-23 07:05] MED LIST changes: +ACET650T37 MT
[2021-02-23 08:06] LABS: BG BASE EXCESS 2.8 mmol/L (-2.0-2.0); BG CARBOXYHEMOGLOBIN 1.8 % (0.5-1.5); BG DEOXYHEMOGLOBIN 2.8 % (0.0-5.0); BG FRACTION INSPIRED OXYGEN 28; BG HCO3 ACT 27.4 mmol/L (22.0-26.0); BG METHEMOGLOBIN 0.3 % (0.0-1.5); BG OXYGEN SATURATION 97.1 % (92.0-98.5); BG OXYHEMOGLOBIN 95.1 % (94.0-97.0); BG PCO2 41.9 mmHg (35.0-45.0); BG PH 7.433 (7.350-7.450); BG PO2 92.9 mmHg (75.0-100.0); BG SAMPLE SITE LEFT RADIAL; BG VENT MODE NASAL CANNULA
[2021-02-23 08:27] LABS: CHLORIDE 103 mEq/L (98-107)
[2021-02-23 08:30] LABS: BASOPHILS % 1.9 % (0.0-2.0); HEMATOCRIT. 34.1 % (42.0-52.0); HEMOGLOBIN. 11.2 g/dL (14.0-18.0); MEAN CORPUSCULAR HEMOGLOBIN 27.2 pg (28.0-32.0); MEAN PLATELET VOLUME 9.5 fl (7.4-10.4); MONOCYTES % 10.1 % (2.0-8.0); PLATELET 88 x1000/uL (130-400); RED BLOOD CELL COUNT 4.11 mill/uL (4.7-6.1); RED CELL DISTRIBUTION WIDTH 16.9 % (11.6-14.6)
[2021-02-23] MEDS ORDERED: FUROSEMIDE 40MG/4ML VIAL IVP ONE (12:00)
[2021-02-23 23:00] VITALS: BP 185/94
[2021-02-24] VITALS: BP 159/78
[2021-02-24] MEDS ORDERED: ACETAMINOPHEN 325MG TABLET PO PRN (01:45)
[2021-02-24] MEDS ORDERED: DEXTROSE 50% WATER 50ML SYRINGE IV PRN (01:45)
[2021-02-24] MEDS ORDERED: APIX2.5T MT (02:04)
[2021-02-24] MEDS: BLOOD SUGAR DIAGNOSTIC STRIP TEST SCH ×4 (06:59→21:00)
[2021-02-24] MEDS: INSULIN LISPRO 100 UNITS/ML SUBCUT SCH ×4 (06:59→21:00)
[2021-02-24 07:22] LABS: HEMATOCRIT. 37.7 % (42.0-52.0); HEMOGLOBIN. 11.9 g/dL (14.0-18.0); MEAN CORPUSCULAR HEMOGLOBIN 26.5 pg (28.0-32.0); MEAN CORPUSCULAR VOLUME 83.8 fL (80.0-94.0); MEAN PLATELET VOLUME 9.8 fl (7.4-10.4); PLATELET 88 x1000/uL (130-400); RED CELL DISTRIBUTION WIDTH 17.4 % (11.6-14.6)
[2021-02-24 07:29] LABS: CHLORIDE 101 mEq/L (98-107)
[2021-02-24 08:00] VITALS: BP 145/72
[2021-02-24] MEDS ORDERED: *PATIENT'S OWN MEDICATION STORAGE XX SCH (08:30)
[2021-02-24] MEDS ORDERED: MEDICATION NOT ON FORMULARY EA (Ascorbate Calcium (Vitamin C) 1 TAB) MT SCH (09:00)
[2021-02-24] MEDS ORDERED: MEDICATION NOT ON FORMULARY EA (Multivitamin (Multi-Vitamin Daily) 1 TAB) MT SCH (09:00)
[2021-02-24] MEDS ORDERED: ZINC SULFATE MT SCH (09:00)
[2021-02-24] MEDS: ASCORBIC ACID 500 MG TABLET PO SCH (09:21)
[2021-02-24] MEDS: APIXABAN 2.5 MG TABLET PO SCH ×2 (09:21→17:49)
[2021-02-24] MEDS: ZINC SULFATE 220 MG ( 50 ) CAPSULE PO SCH (09:21)
[2021-02-24] MEDS: PIOGLITAZONE 15MG TABLET PO SCH (09:21)
[2021-02-24] MEDS: CALCIUM ACETATE 667MG CAPSULE PO SCH ×3 (09:21→17:48)
[2021-02-24] MEDS: CALCIUM CARBONATE/VITAMIN D3 500MG TABLET PO SCH ×2 (09:22→17:48)
[2021-02-24] MEDS: MULTIVITAMINS,THER W-MINERALS TABLET PO SCH (09:22)
[2021-02-24] MEDS: ATORVASTATIN CALCIUM 20MG TABLET PO SCH (09:22)
[2021-02-24] MEDS: FAMOTIDINE 20MG TABLET PO SCH (09:22)
[2021-02-24 12:00] VITALS: BP 148/61
[2021-02-24 15:56] LABS: HEPATITIS B SURFACE ANTIGEN NEGATIVE
[2021-02-24 16:00] VITALS: BP 158/1
[2021-02-24] MEDS ORDERED: IPRATROPIUM/ALBUTEROL 0.5-3(2.5)MG/3ML NEB HHN PRN (19:00)
[2021-02-24 20:37] VITALS: BP 171/89
[2021-02-24] MEDS ORDERED: LOSARTAN POTASSIUM 100 MG TABLET PO SCH (21:00)
[2021-02-24 22:34] LABS: PLATELET ESTIMATE DECREASED
[2021-02-25] VITALS (7 sets, daily range): BP systolic 93–170; BP diastolic 52–75
[2021-02-25 06:47] LABS: HEMATOCRIT 35.4 % (42.0-52.0); HEMOGLOBIN 11.4 g/dL (14.0-18.0); MEAN CORPUSCULAR HEMOGLOBIN 26.6 pg (28.0-32.0); MEAN CORPUSCULAR VOLUME 82.3 fL (80.0-94.0); PLATELET 99 x1000/uL (130-400); RED CELL DISTRIBUTION WIDTH 17.2 % (11.6-14.6)
[2021-02-25] MEDS: BLOOD SUGAR DIAGNOSTIC STRIP TEST SCH ×3 (07:10→17:10)
[2021-02-25] MEDS: INSULIN LISPRO 100 UNITS/ML SUBCUT SCH ×3 (07:40→17:40)
[2021-02-25] MEDS: PIOGLITAZONE 15MG TABLET PO SCH (08:46)
[2021-02-25] MEDS: APIXABAN 2.5 MG TABLET PO SCH ×2 (08:46→17:00)
[2021-02-25] MEDS: ZINC SULFATE 220 MG ( 50 ) CAPSULE PO SCH (08:47)
[2021-02-25] MEDS: MULTIVITAMINS,THER W-MINERALS TABLET PO SCH (08:47)
[2021-02-25] MEDS: FAMOTIDINE 20MG TABLET PO SCH (08:47)
[2021-02-25] MEDS: CALCIUM CARBONATE/VITAMIN D3 500MG TABLET PO SCH ×2 (08:47→17:00)
[2021-02-25] MEDS: ATORVASTATIN CALCIUM 20MG TABLET PO SCH (08:47)
[2021-02-25] MEDS: CALCIUM ACETATE 667MG CAPSULE PO SCH ×3 (08:47→17:00)
[2021-02-25] MEDS: ASCORBIC ACID 500 MG TABLET PO SCH (08:48)
[2021-02-25] MEDS ORDERED: CLONIDINE 0.1MG TABLET PO PRN (18:30)
== END 2021-02-25 20:52 | disposition home or self-care (01) | DRG 917 ==
LOC: ER 07:05 → 8WST 17:46 → ENRESERV 21:57
PROVIDERS: ADMIT Internal Medicine; ATTEND Internal Medicine
PROC: 5A1D70Z Performance of Urinary Filtration, Intermittent, Less than 6 Hours Per Day (ICD-10-PCS; principal; 2021-02-25)
DX: T59.811A Toxic effect of smoke, accidental (unintentional), initial encounter (principal); N18.6 End stage renal disease; E44.1 Mild protein-calorie malnutrition; I12.0 Hypertensive chronic kidney disease with stage 5 chronic kidney disease or end stage renal disease; D61.818 Other pancytopenia; E11.22 Type 2 diabetes mellitus with diabetic chronic kidney disease; E66.9 Obesity, unspecified; D64.9 Anemia, unspecified; M19.011 Primary osteoarthritis, right shoulder; Z20.822 Contact with and (suspected) exposure to COVID-19; Z86.16 Personal history of COVID-19; Z87.01 Personal history of pneumonia (recurrent); Z99.2 Dependence on renal dialysis; Y92.89 Other specified places as the place of occurrence of the external cause; Z68.33 Body mass index [BMI] 33.0-33.9, adult; Z79.899 Other long term (current) drug therapy; Z89.421 Acquired absence of other right toe(s); Z89.411 Acquired absence of right great toe; Z89.612 Acquired absence of left leg above knee; Z71.3 Dietary counseling and surveillance
CPT/HCPCS: 36415; 36600; 71045; 73030; 80053; 82375; 82805; 82962; 83036; 83880; 85025; 85027; 86705; 86709; 86803; 87340; 87426; 93005; 93306; 99285; J1940

== ENCOUNTER 2021-07-05 07:20 | Emergency (ER) | payer MEDICARE, OTHER ==
[~2021-07-05] VITALS: Ht 182.9 cm; Wt 104.0 kg
[~2021-07-05 07:20] MED LIST changes: +APIX2.5T MT
[2021-07-05] MEDS ORDERED: IOHEXOL-350 100 ML BOTTLE ONE (08:19)
[2021-07-05 09:24] LABS: CHLORIDE 99 mEq/L (98-107)
[2021-07-05 09:25] LABS: HEMATOCRIT. 33.2 % (42.0-52.0); MEAN CORPUSCULAR HEMOGLOBIN 27.3 pg (28.0-32.0); MEAN CORPUSCULAR VOLUME 82.3 fL (80.0-94.0); MEAN PLATELET VOLUME 9.8 fl (7.4-10.4); PLATELET 75 x1000/uL (130-400); RED BLOOD CELL COUNT 4.03 mill/uL (4.7-6.1); RED CELL DISTRIBUTION WIDTH 17.1 % (11.6-14.6)
[2021-07-05 09:49] LABS: NUCLEATED RED BLOOD CELLS 1 /100 WBC
[2021-07-05 09:50] LABS: PLATELET ESTIMATE DECREASED
[2021-07-05] MEDS ORDERED: LABETALOL 5MG/ML SYR 20 MG/4 ML SYRINGE IV ONE (10:00)
[2021-07-05] MEDS ORDERED: LABETALOL 5MG/ML SYR 20 MG/4 ML SYRINGE IV SCH (10:30)
[2021-07-05] MEDS ORDERED: ASPIRIN 81MG TABLET PO ONE (10:45)
[2021-07-05 11:05] VITALS: BP 189/88
[2021-07-05 11:08] LABS: ETHANOL BLOOD < 10 mg/dL
[2021-07-05 14:38] LABS: HEPATITIS B SURFACE ANTIGEN NEGATIVE
[2021-07-05] MEDS ORDERED: ATORVASTATIN CALCIUM 40MG TABLET PO SCH (21:00)
== END 2021-07-07 14:35 | disposition short-term general hospital (02) ==
LOC: ER 07:20 → CANBEDREQ 15:07 → ER 07-07 14:35
DX: R42 Dizziness and giddiness (principal); I10 Essential (primary) hypertension; E11.9 Type 2 diabetes mellitus without complications; Z20.822 Contact with and (suspected) exposure to COVID-19; Z79.899 Other long term (current) drug therapy
CPT/HCPCS: 36415; 70450; 70496; 70498; 71045; 80053; 80320; 82962; 85025; 86705; 86709; 86803; 87340; 87426; 93005; 96374; 99291; J3490; Q9967; G0480

== ENCOUNTER 2021-07-21 07:46 | Emergency (ER) | payer OTHER ==
[~2021-07-21] VITALS: Ht 185.4 cm; Wt 109.0 kg
[2021-07-21 11:37] LABS: BASOPHILS % 0.4 % (0.0-2.0); EOSINOPHILS % 5.1 % (0.0-5.0); HEMATOCRIT. 29.9 % (42.0-52.0); HEMOGLOBIN. 9.8 g/dL (14.0-18.0); LYMPHOCYTES % 17.5 % (20.0-50.0); MEAN CORPUSCULAR HEMOGLOBIN 27.1 pg (28.0-32.0); MEAN CORPUSCULAR VOLUME 82.7 fL (80.0-94.0); MEAN PLATELET VOLUME 8.9 fl (7.4-10.4); PLATELET 97 x1000/uL (130-400); RED BLOOD CELL COUNT 3.61 mill/uL (4.7-6.1); RED CELL DISTRIBUTION WIDTH 17.9 % (11.6-14.6)
[2021-07-21 11:47] LABS: CHLORIDE 101 mEq/L (98-107)
[2021-07-21] MEDS ORDERED: METR-167 MT (13:28)
[2021-07-21 15:25] VITALS: BP 152/73
== END 2021-07-21 14:18 | disposition home or self-care (01) ==
LOC: ER 07:57
DX: R19.7 Diarrhea, unspecified (principal); I12.0 Hypertensive chronic kidney disease with stage 5 chronic kidney disease or end stage renal disease; E11.22 Type 2 diabetes mellitus with diabetic chronic kidney disease; N18.6 End stage renal disease; Z99.2 Dependence on renal dialysis; Z79.899 Other long term (current) drug therapy
CPT/HCPCS: 36415; 80053; 85025; 99285

== ENCOUNTER 2021-07-23 15:36 | Emergency (ER) | payer OTHER ==
[~2021-07-23] VITALS: Ht 185.4 cm; Wt 113.0 kg
[~2021-07-23 15:36] MED LIST changes: +METR-167 MT
[2021-07-23] MEDS ORDERED: SODIUM CHLORIDE 0.9% 1,000 ML IV ONE (16:45)
[2021-07-23] MEDS ORDERED: VANCOMYCIN HCL 1 GM/VIAL PO STA (16:46)
[2021-07-23] MEDS ORDERED: METRONIDAZOLE 500 MG PREMIX 100 ML IV ONE (17:00)
[2021-07-23 17:09] LABS: BASOPHILS % 1.4 % (0.0-2.0); EOSINOPHILS % 4.6 % (0.0-5.0); HEMATOCRIT. 32.1 % (42.0-52.0); HEMOGLOBIN. 10.6 g/dL (14.0-18.0); LYMPHOCYTES % 16.4 % (20.0-50.0); MEAN CORPUSCULAR HEMOGLOBIN 26.9 pg (28.0-32.0); MEAN CORPUSCULAR VOLUME 81.7 fL (80.0-94.0); MEAN PLATELET VOLUME 9.1 fl (7.4-10.4); MONOCYTES % 9.3 % (2.0-8.0); NEUTROPHILS % 68.3 % (40.0-76.0); PLATELET 96 x1000/uL (130-400); RED BLOOD CELL COUNT 3.93 mill/uL (4.7-6.1); RED CELL DISTRIBUTION WIDTH 17.8 % (11.6-14.6)
[2021-07-23 17:19] LABS: CHLORIDE 101 mEq/L (98-107)
[2021-07-23] MEDS ORDERED: VANCOMYCIN 1000MG/20ML ORAL SOLN PO NR (17:30)
[2021-07-23] MEDS ORDERED: METRONIDAZOLE 500 MG PREMIX 100 ML IV SCH (20:45)
[2021-07-24 00:20] VITALS: BP 154/70
== END 2021-07-24 00:30 | disposition short-term general hospital (02) ==
LOC: ER 15:36 → CANBEDREQ 07-24 21:29
DX: R19.7 Diarrhea, unspecified (principal); R42 Dizziness and giddiness; R94.31 Abnormal electrocardiogram [ECG] [EKG]; I12.0 Hypertensive chronic kidney disease with stage 5 chronic kidney disease or end stage renal disease; E11.22 Type 2 diabetes mellitus with diabetic chronic kidney disease; N18.6 End stage renal disease; Z99.2 Dependence on renal dialysis; Z89.431 Acquired absence of right foot; Z89.612 Acquired absence of left leg above knee
CPT/HCPCS: 36415; 71045; 80053; 82962; 83690; 84484; 85025; 93005; 96365; 99285; J3370; J3490; J7030

== ENCOUNTER 2021-07-28 11:44 | Emergency (ER) | payer OTHER ==
[~2021-07-28] VITALS: Ht 185.4 cm; Wt 100.0 kg
[2021-07-28 15:33] LABS: BASOPHILS % 1.1 % (0.0-2.0); EOSINOPHILS % 6.7 % (0.0-5.0); HEMOGLOBIN. 10.2 g/dL (14.0-18.0); LYMPHOCYTES % 21.9 % (20.0-50.0); MEAN CORPUSCULAR HEMOGLOBIN 26.8 pg (28.0-32.0); MEAN CORPUSCULAR VOLUME 81.1 fL (80.0-94.0); MEAN PLATELET VOLUME 9.7 fl (7.4-10.4); NEUTROPHILS % 61.3 % (40.0-76.0); PLATELET 90 x1000/uL (130-400); RED BLOOD CELL COUNT 3.82 mill/uL (4.7-6.1); RED CELL DISTRIBUTION WIDTH 18.8 % (11.6-14.6)
[2021-07-28 15:38] LABS: CHLORIDE 103 mEq/L (98-107)
[2021-07-28 18:00] VITALS: BP 163/62
== END 2021-07-28 18:00 | disposition home or self-care (01) ==
LOC: ER 11:44
DX: R19.7 Diarrhea, unspecified (principal); N18.6 End stage renal disease; I12.0 Hypertensive chronic kidney disease with stage 5 chronic kidney disease or end stage renal disease; E11.22 Type 2 diabetes mellitus with diabetic chronic kidney disease; Z99.2 Dependence on renal dialysis; Z79.899 Other long term (current) drug therapy
CPT/HCPCS: 36415; 80053; 85025; 99283

== ENCOUNTER 2021-08-06 06:51 | Emergency (ER) | payer OTHER ==
[~2021-08-06] VITALS: Ht 182.9 cm; Wt 95.0 kg
[~2021-08-06 06:51] MED LIST changes: +ACET-3163 MT; -ACET650T37 MT; +LEVO250T43 MT; -LEVO250T58 MT
[2021-08-06 09:03] LABS: BASOPHILS % 2.5 % (0.0-2.0); EOSINOPHILS % 11.4 % (0.0-5.0); HEMATOCRIT. 33.4 % (42.0-52.0); HEMOGLOBIN. 10.9 g/dL (14.0-18.0); LYMPHOCYTES % 23.2 % (20.0-50.0); MEAN CORPUSCULAR VOLUME 82.5 fL (80.0-94.0); MEAN PLATELET VOLUME 10.1 fl (7.4-10.4); MONOCYTES % 10.1 % (2.0-8.0); NEUTROPHILS % 52.8 % (40.0-76.0); PLATELET 88 x1000/uL (130-400); RED BLOOD CELL COUNT 4.04 mill/uL (4.7-6.1)
[2021-08-06 09:10] LABS: CHLORIDE 101 mEq/L (98-107)
[2021-08-06] MEDS ORDERED: SODIUM CHLORIDE 0.9% 1,900 ML IV ONE (10:30)
[2021-08-06 15:54] VITALS: BP 186/87
== END 2021-08-06 16:57 | disposition home or self-care (01) ==
LOC: ER 16:37
DX: I12.0 Hypertensive chronic kidney disease with stage 5 chronic kidney disease or end stage renal disease (principal); I10 Essential (primary) hypertension
CPT/HCPCS: 36415; 80053; 85025; 96360; 96361; 99283